=== PATIENT | male | born 2000 | race Hispanic/Latino ===

== ENCOUNTER 2018-05-29 15:39 | Emergency (ER) | payer OTHER ==
--- NOTE | 2018-05-29 16:54 | US ---
Date of service: 05/29/2018 HISTORY: trauma to R testicle TECHNIQUE: Realtime sonography through the scrotum with color and doppler flow. COMPARISON: There are technique the vessels through posteriorly on the FINDINGS: RIGHT TESTICLE: Measures 4.5 x 2.5 x 3.0 cm. There is some mild possible heterogeneity of the posterior aspect of the right testicle. Given the history of trauma this may reflect a small area of contusion. No definite intratesticular mass is seen. There is normal flow in the remainder of the right testicle, and torsion is not suspected. No appreciable testicular laceration or fracture is noted. RIGHT EPIDIDYMIS: Epididymal head measures 9 x 5 millimeters . Grossly unremarkable appearance with normal flow. LEFT TESTICLE: Measures 4.9 x 2.3 x 3.1 cm. Normal echotexture and flow. LEFT EPIDIDYMIS: Epididymal head measures 8 x 5 millimeters . Grossly unremarkable appearance with normal flow. HYDROCELE: No appreciable hydrocele or collection. VARICOCELE: None. OTHER FINDINGS: None. IMPRESSION: There is mild heterogeneity versus artifact within the posterior aspect of the right mid testicle. Finding could reflect contusion given the history of trauma. Short interval follow-up ultrasound would be suggested to confirm resolution or stability. Normal left testicle. No ultrasound evidence of torsion, hydrocele, or varicocele. The emergency room physician Christiane Barnes was notified of the findings and recommendations.
[2018-05-29 17:51] VITALS: BP 118/72; PULSE 76; RESP 18; TEMP 98; O2SAT 100
--- NOTE | 2018-05-29 19:27 | ED PDOC ---
HPI: Male Pain Time Seen by Provider: 05/29/18 15:49 Chief Complaint (Nursing): Groin Pain History Per: Patient Additional Complaint(s): Pt. states 30 minutes [employer] pt. was playing baseball when he was accidentally struck with a baseball on the R testicle and has had and and swelling there since. Denies dysuria, hematuria, pelvic pain, penile pain, numbness, tingling, other injury. Past Medical History Reviewed: Historical Data, Nursing Documentation, Vital Signs Vital Signs: Last Vital Signs Temp 98.0 F 05/29/18 17:50 Pulse 76 05/29/18 17:50 Resp 18 05/29/18 17:50 BP 118/72 05/29/18 17:50 Pulse Ox 100 05/29/18 17:50 - Family History Family History: States: No Known Family Hx - Allergies Allergies/Adverse Reactions: Allergies Allergy/AdvReac Type Severity Reaction Status Date / Time No Known Allergies Allergy Verified 05/29/18 15:46 Review of Systems ROS Statement: Except As Marked, All Systems Reviewed And Found Negative Genitourinary Male: Positive for: Scrotal Pain Physical Exam - Physical Exam Appears: Positive for: Well, Non-toxic, No Acute Distress Skin: Positive for: Normal Color, Warm. Negative for: Rash Eye Exam: Positive for: Normal appearance Gastrointestinal/Abdominal: Positive for: Normal Exam, Soft, Other (no ecchymosis). Negative for: Tenderness Male Genital Exam: Positive for: no hernia, scrotum tenderness (R), other (R testicle is hardened and not high rising; no ecchymosis to scrotum; no skin changes or break in skin integrity of scrotum and penis; cremasteric reflex present b/l). Negative for: lesions, scrotum tenderness (L), testicular tenderness (R), testicular tenderness (L), urethral discharge Back: Positive for: Normal Inspection. Negative for: L CVA Tenderness, R CVA Tenderness Neurologic/Psych: Positive for: Alert, Oriented (x3). Negative for: Aphasia, Facial Droop - Laboratory Results Urine dip results: Positive for: Ketones (trace). Negative for: Leukocyte Esterase, Blood, Nitrate, Glucose, Bilirubin, Protein - ECG O2 Sat by Pulse Oximetry: 100 - Progress ED Course And Treament: Testicular US ordered. Offered pain meds but pt. refused. Testicular US: There is mild heterogeneity versus artifact within the posterior aspect of the right mid testicle. Finding could reflect contusion given the history of trauma. Short interval follow-up ultrasound would be suggested to confirm resolution or stability. Normal left testicle. No ultrasound evidence of torsion, hydrocele, or varicocele. Pt. evaluated by Dr. Barnes who agrees with care. Case and US results discussed in detail with Dr. Cordova, urology on-call, who agrees with care and states pt. can f/u in his office next week for f/u US. Also pt. is to refrain from physical activity and is to ice area. Pt. informed of results and plan to f/u with Dr. Cordova. Agrees with plan and care. Advised to refrain from physical activity including sexual intercourse until cleared by urology. Verbalized complete and correct understanding of necessary f/u and avoidance of all types of physical activity until cleared by urology. Disposition - Clinical Impression Clinical Impression: Contusion of testicle - Patient ED Disposition Is Patient to be Admitted: No - Disposition Referrals: [facility] [Outside] Parveen Cordova Jr., MD [Staff Provider] - Disposition: Routine/Home Disposition Time: 17:30 Condition: STABLE Additional Instructions: NO PHYSICAL ACTIVITY INCLUDING SEXUAL INTERCOURSE UNTIL CLEARED BY DOCTOR FOLLOW UP WITH DR. CORDOVA (UROLOGIST) FOR REPEAT ULTRASOUND RETURN TO ED IMMEDIATELY IF SYMPTOMS WORSEN JUNG KIMBALL, thank you for letting us take care of you today. Your provider was Christiane Barnes MD and you were treated for GROIN INJURY. The emergency medical care you received today was directed at your acute symptoms. If you were prescribed any medication, please fill it and take as directed. It may take several days for your symptoms to resolve. Return to the Emergency Department if your symptoms worsen, do not improve, or if you have any other problems. Please contact your doctor or call one of the physicians/clinics you have been referred to that are listed on the Patient Visit Information form that is included in your discharge packet. Bring any paperwork you were given at discharge with you along with any medications you are taking to your follow up visit. Our treatment cannot replace ongoing medical care by a primary care provider outside of the emergency department. Thank you for allowing the [facility] team to be part of your care today. If you had an X-Ray or CT scan: A Radiologist will review the ED reading if any change in treatment is needed we will contact you. If you had a blood, urine, or wound culture: It will take several days for the results, if any change in treatment is needed we will contact you. If you had an STI test: It will take 48 hours for the results. Please call after 1 week if you have not heard back. Instructions: Contusion (DC), Testicular Injury Forms: [employer] (Macanese) Print Language: FIJIAN
== END 2018-05-29 17:50 | disposition home or self-care (01) ==
LOC: H.ER 15:39
DX: S30.22XA Contusion of scrotum and testes, initial encounter (principal); W21.03XA Struck by baseball, initial encounter; Y93.64 Activity, baseball